=== PATIENT | female | born 2000 | race Caucasian/White ===

== ENCOUNTER → 2023-07-01 | Emergency (ER) | payer BC ==
--- OUTSIDE RECORDS SUMMARY | 2023-07-01 06:19 | XMS REPORT | Continuity of Care Document ---
Author Name Unknown Address [address] [facility] [place] [address] [facility] thconnect Address [address] [facility] [place] [address] Care Team Providers Care Hazardous Waste Material Technician Name Role Phone Pcp, Patient Does Not Have A Primary Care Physic ventura Carlitos Crouch Attending Clinician + CARLITOS IRAHETA Attending Clinician Unava illucien Doctor Unassigned, [place] Attending Clinician U anna Santos RN, Sean Attending Clinician Unavailab le Only, Yanick [facility] Test Attending Clinician Unavaildex das Unknown, Attending Attending Clinician Unavailab le UNKNOWN, ATTENDING Attending Clinician Unavailab MARYJO Pina Attending Clinician Unavailable Vikram RN, Elisa Strickland Attending Clinician Unavailab le Nurse, Yanick Urgent Attending Clinician Unavaildex Bryant MD, Jesus James Attending Clinician [phone] ORLANDO CARPIO Attending Clinician Unavailable Orlando Carpio MD Attending Clinician [phone] [facility] Attending Clinician Unavailable Orlando Carpio MD Admitting Clinician [phone] Payers Payer Name Policy Type Policy Number Effective Date Expirati on Date Source [facility] OUT [facility] STATE [id number] 2019 00:00:00 Problems Condition Name Condition Details Condition Category Status Onset Date Resolution Date Last Treatment Date Treating Clinician Comments Source 40 weeks gestation of 40 weeks gestation of Disease Active 12-21 00:00: 00 [facility] Allergies, Adverse Reactions, Alerts Allergy Name Allergy Type Status Severity Reaction(s) Onset Date Inactive Date Treating Clinician Comments Source MORPHINE DRUG INGREDI Active [facility] 12-17 00:00: 00 [facility] Morphine Propensi ty to adverse reaction s Active [facility] 12-17 00:00: 00 [facility] NO KNOWN ALLERGIE S Drug Class Active [facility] Social History Social Habit Start Date Stop Date Quantity Comments Source ASSERTION 2019-03-30 00:00:00 [facility] History SDOH Alcohol Std Drinks [facility] History SDOH Alcohol Binge [facility] intake 2023-06-13 00:00:00 2023-06-13 00:00:00 Current drinker of alcohol (finding) [facility] History of Social function 2023-06-13 00:00:00 2023-06-13 00:00:00 [facility] Exposure to SARS-CoV-2 (event) 2022-09-09 00:00:00 2022-09-19 13:41:00 Not sure [facility] Tobacco use and exposure 2022-09-19 00:00:00 2022-09-19 00:00:00 Smokeless tobacco non-user [facility] History SDOH Alcohol Frequency 2019-12-18 00:00:00 2019-12-18 00:00:00 1 [facility] Sex Assigned At 2000 00:00:00 2000 00:00:00 [facility] Smoking Status Start Date Stop Date Source Unknown if ever smoked [facility] Never smoked tobacco [facility] Medications Ordered Medication Name Filled Medication Name Start Date Stop Date Current Medication? Ordering Clinician Indication Dosage Frequency Signature (SIG) Comments Components Source norgestimat e-ethinyl estradioL 0.25-35 mg-mcg per tablet 2022-07 00:00: 00 Yes [id number] 1{tbl} Take 1 tablet by mouth in the morning. [facility] norgestimat e-ethinyl estradioL 0.25-35 mg-mcg per tablet 2022-07 2-05 00:00: 00 Yes [id number] 1{tbl} Take 1 tablet by mouth in the morning. [facility] medroxyPROG ESTERone (DEPO-PROVE RA) syringe 150 mg 09-19 21:15: 00 09-19 20:22 :00 No 150mg [facility] medroxyPROG ESTERone (DEPO-PROVE RA) syringe 150 mg 09-19 21:15: 00 09-19 20:22 :00 No 150mg 150 mg, Intramuscu lar, ONCE, 1 dose, On Mon09/19/22 at 1615, Routine [facility] medroxyPROG ESTERone (DEPO-PROVE RA) syringe 150 mg 09-19 21:15: 00 09-19 20:22 :00 No 150mg [facility] medroxyPROG ESTERone (DEPO-PROVE RA) syringe 150 mg 09-19 21:15: 00 09-19 20:22 :00 No 150mg 150 mg, Intramuscu lar, ONCE, 1 dose, On Mon09/19/22 at 1615, Routine [facility] medroxyPROG ESTERone (DEPO-PROVE RA) syringe 150 mg 09-19 21:15: 00 09-19 20:22 :00 No 150mg [facility] medroxyPROG ESTERone (DEPO-PROVE RA) syringe 150 mg 09-19 21:15: 00 09-19 20:22 :00 No 150mg 150 mg, Intramuscu lar, ONCE, 1 dose, On Mon09/19/22 at 1615, Routine [facility] medroxyPROG ESTERone (DEPO-PROVE RA) syringe 150 mg 09-19 21:15: 00 09-19 20:22 :00 No 150mg [facility] medroxyPROG ESTERone (DEPO-PROVE RA) syringe 150 mg 09-19 21:15: 00 09-19 20:22 :00 No 150mg 150 mg, Intramuscu lar, ONCE, 1 dose, On Mon09/19/22 at 1615, Routine [facility] cephALEXin (KEFLEX) 500 mg capsule 12-23 11:37: 27 12-23 00:00 :00 No 500mg Take 500 mg by mouth daily. [facility] ferrous sulfate (IRON) 325 mg (65 mg iron) tablet 12-23 11:37: 27 12-23 00:00 :00 No 325mg Take 325 mg by mouth 3 (three) times daily with meals. [facility] varicella virus vaccine live (VARIVAX (PF)) injection 0.5 mL 12-23 11:33: 03 12-23 21:42 :00 No .5mL 0.5 mL, Subcutaneo us, ONCE-PRIOR TO DISCHARGE, 1 dose, Starting Mon12/24/19 at 0633, Until Discontinu ed, Routine, Give vaccine prior to discharge [facility] vitamin w/FA tablet 12-23 00:00: 00 Yes [id number] 1{tbl} Take 1 tablet by mouth daily. [facility] docusate calcium 240 mg capsule 12-23 00:00: 00 Yes [id number] 240mg Take 1 capsule by mouth once daily as needed for Constipati on. [facility] ferrous sulfate 325 mg (65 mg iron) tablet 12-23 00:00: 00 Yes [id number] 325mg Take 1 tablet by mouth 2 (two) times daily. [facility] ibuprofen 600 mg tablet 12-23 00:00: 00 Yes [id number] 600mg Take 1 tablet by mouth every 6 (six) hours as needed (Pain). Take with food or milk. [facility] vitamin w/FA tablet 12-23 00:00: 00 Yes [id number] 1{tbl} Take 1 tablet by mouth daily. [facility] docusate calcium 240 mg capsule 12-23 00:00: 00 Yes [id number] 240mg Take 1 capsule by mouth once daily as needed for Constipati on. [facility] ferrous sulfate 325 mg (65 mg iron) tablet 12-23 00:00: 00 Yes [id number] 325mg Take 1 tablet by mouth 2 (two) times daily. [facility] ibuprofen 600 mg tablet 12-23 00:00: 00 Yes [id number] 600mg Take 1 tablet by mouth every 6 (six) hours as needed (Pain). Take with food or milk. [facility] vitamin w/FA tablet 12-23 00:00: 00 Yes [id number] 1{tbl} Take 1 tablet by mouth daily. [facility] docusate calcium 240 mg capsule 12-23 00:00: 00 Yes [id number] 240mg Take 1 capsule by mouth once daily as needed for Constipati on. [facility] ferrous sulfate 325 mg (65 mg iron) tablet 12-23 00:00: 00 Yes [id number] 325mg Take 1 tablet by mouth 2 (two) times daily. [facility] ibuprofen 600 mg tablet 12-23 00:00: 00 Yes [id number] 600mg Take 1 tablet by mouth every 6 (six) hours as needed (Pain). Take with food or milk. [facility] vitamin w/FA tablet 12-23 00:00: 00 Yes [id number] 1{tbl} Take 1 tablet by mouth daily. [facility] docusate calcium 240 mg capsule 12-23 00:00: 00 Yes [id number] 240mg Take 1 capsule by mouth once daily as needed for Constipati on. [facility] ferrous sulfate 325 mg (65 mg iron) tablet 12-23 00:00: 00 Yes [id number] 325mg Take 1 tablet by mouth 2 (two) times daily. [facility] ibuprofen 600 mg tablet 12-23 00:00: 00 Yes [id number] 600mg Take 1 tablet by mouth every 6 (six) hours as needed (Pain). Take with food or milk. [facility] vitamin w/FA tablet 0 16 00:00: 00 Yes [id number] 1{tbl} Take 1 tablet by mouth daily. [facility] docusate calcium 240 mg capsule 16 00:00: 00 Yes [id number] 240mg Take 1 capsule by mouth once daily as needed for Constipati on. [facility] ferrous sulfate 325 mg (65 mg iron) tablet 12-23 00:00: 00 Yes [id number] 325mg Take 1 tablet by mouth 2 (two) times daily. [facility] ibuprofen 600 mg tablet 12-23 00:00: 00 Yes [id number] 600mg Take 1 tablet by mouth every 6 (six) hours as needed (Pain). Take with food or milk. [facility] vitamin w/FA tablet 12-23 00:00: 00 Yes [id number] 1{tbl} Take 1 tablet by mouth daily. [facility] docusate calcium 240 mg capsule 12-23 00:00: 00 Yes [id number] 240mg Take 1 capsule by mouth once daily as needed for Constipati on. [facility] ferrous sulfate 325 mg (65 mg iron) tablet 12-23 00:00: 00 Yes [id number] 325mg Take 1 tablet by mouth 2 (two) times daily. [facility] ibuprofen 600 mg tablet 12-23 00:00: 00 Yes [id number] 600mg Take 1 tablet by mouth every 6 (six) hours as needed (Pain). Take with food or milk. [facility] vitamin w/FA tablet 12-23 00:00: 00 Yes [id number] 1{tbl} Take 1 tablet by mouth daily. [facility] docusate calcium 240 mg capsule 0 16 00:00: 00 Yes [id number] 240mg Take 1 capsule by mouth once daily as needed for Constipati on. [facility] ferrous sulfate 325 mg (65 mg iron) tablet 12-23 00:00: 00 Yes [id number] 325mg Take 1 tablet by mouth 2 (two) times daily. [facility] ibuprofen 600 mg tablet 12-23 00:00: 00 Yes [id number] 600mg Take 1 tablet by mouth every 6 (six) hours as needed (Pain). Take with food or milk. [facility] vitamin w/FA tablet 12-23 00:00: 00 Yes [id number] 1{tbl} Take 1 tablet by mouth daily. [facility] docusate calcium 240 mg capsule 12-23 00:00: 00 Yes [id number] 240mg Take 1 capsule by mouth once daily as needed for Constipati on. [facility] ferrous sulfate 325 mg (65 mg iron) tablet 12-23 00:00: 00 Yes [id number] 325mg Take 1 tablet by mouth 2 (two) times daily. [facility] ibuprofen 600 mg tablet 12-23 00:00: 00 Yes [id number] 600mg Take 1 tablet by mouth every 6 (six) hours as needed (Pain). Take with food or milk. [facility] vitamin w/FA tablet 12-23 00:00: 00 Yes [id number] 1{tbl} Take 1 tablet by mouth daily. [facility] docusate calcium 240 mg capsule 12-23 00:00: 00 Yes [id number] 240mg Take 1 capsule by mouth once daily as needed for Constipati on. [facility] ferrous sulfate 325 mg (65 mg iron) tablet 12-23 00:00: 00 Yes [id number] 325mg Take 1 tablet by mouth 2 (two) times daily. [facility] ibuprofen 600 mg tablet 12-23 00:00: 00 Yes [id number] 600mg Take 1 tablet by mouth every 6 (six) hours as needed (Pain). Take with food or milk. [facility] vitamin w/FA tablet 12-23 00:00: 00 Yes [id number] 1{tbl} Take 1 tablet by mouth daily. [facility] docusate calcium 240 mg capsule 12-23 00:00: 00 Yes [id number] 240mg Take 1 capsule by mouth once daily as needed for Constipati on. [facility] ferrous sulfate 325 mg (65 mg iron) tablet 12-23 00:00: 00 Yes [id number] 325mg Take 1 tablet by mouth 2 (two) times daily. [facility] ibuprofen 600 mg tablet 12-23 00:00: 00 Yes [id number] 600mg Take 1 tablet by mouth every 6 (six) hours as needed (Pain). Take with food or milk. [facility] vitamin w/FA tablet 12-23 00:00: 00 Yes [id number] 1{tbl} Take 1 tablet by mouth daily. [facility] docusate calcium 240 mg capsule 12-23 00:00: 00 Yes [id number] 240mg Take 1 capsule by mouth once daily as needed for Constipati on. [facility] ferrous sulfate 325 mg (65 mg iron) tablet 12-23 00:00: 00 Yes [id number] 325mg Take 1 tablet by mouth 2 (two) times daily. [facility] ibuprofen 600 mg tablet 12-23 00:00: 00 Yes [id number] 600mg Take 1 tablet by mouth every 6 (six) hours as needed (Pain). Take with food or milk. [facility] vitamin w/FA tablet 12-23 00:00: 00 Yes [id number] 1{tbl} Take 1 tablet by mouth daily. [facility] docusate calcium 240 mg capsule 12-23 00:00: 00 Yes [id number] 240mg Take 1 capsule by mouth once daily as needed for Constipati on. [facility] ferrous sulfate 325 mg (65 mg iron) tablet 12-23 00:00: 00 Yes [id number] 325mg Take 1 tablet by mouth 2 (two) times daily. [facility] ibuprofen 600 mg tablet 12-23 00:00: 00 Yes [id number] 600mg Take 1 tablet by mouth every 6 (six) hours as needed (Pain). Take with food or milk. [facility] acetaminoph en (TYLENOL) 325 mg tablet 12-23 00:00: 12-24 04:59 :00 No [id number] 650mg Take 2 tablets by mouth every 6 (six) hours as needed for Alternate with ibuprofen for pain scale 1-3 or Alternate with ibuprofen for pain scale 4-6. [facility] acetaminoph en (TYLENOL) 325 mg tablet 12-23 00:00: 00 12-24 04:59 :00 No [id number] 650mg Take 2 tablets by mouth every 6 (six) hours as needed for Alternate with ibuprofen for pain scale 1-3 or Alternate with ibuprofen for pain scale 4-6. [facility] acetaminoph en (TYLENOL) 325 mg tablet 12-23 00:00: 00 12-24 04:59 :00 No [id number] 650mg Take 2 tablets by mouth every 6 (six) hours as needed for Alternate with ibuprofen for pain scale 1-3 or Alternate with ibuprofen for pain scale 4-6. [facility] acetaminoph en (TYLENOL) 325 mg tablet 12-23 00:00: 00 12-24 04:59 :00 No [id number] 650mg Take 2 tablets by mouth every 6 (six) hours as needed for Alternate with ibuprofen for pain scale 1-3 or Alternate with ibuprofen for pain scale 4-6. [facility] rho(D) immune globulin (RHOGAM) syringe 300 mcg 12-22 15:30: 42 Yes 300ug 300 mcg, Intramuscu lar, ONCE, For 1 dose, Conditiona l, Routine [facility] simethicone (GAS RELIEF (SIMETHICON E)) chewable tablet 160 mg 12-22 15:30: 38 Yes 160mg 160 mg, Oral, PC+HSPRN, Starting 12/22/20 at 1030, Until Discontinu ed, Routine, Gas [facility] ibuprofen (IBU) tablet 600 mg 12-22 15:30: 37 Yes 600mg 600 mg, Oral, Q6HPRN, Starting Mon12/23/19 at 1030, Until Discontinu ed, Routine, Pain (scale 4-6) [facility] acetaminoph en (TYLENOL) tablet 650 mg 12-22 15:30: 37 Yes 650mg 650 mg, Oral, Q6HPRN, Starting Mon12/23/19 at 1030, Until Discontinu ed, Routine, Pain (scale 1-3) [facility] diphenhydrA MINE (BENADRYL) tablet 25 mg 12-22 15:30: 37 Yes 25mg 25 mg, Oral, Q6HPRN, Starting Mon12/23/19 at 1030, Until Discontinu ed, Routine, Sleep, Itching [facility] diphenhydrA MINE-0.9 % sod.chlr (BENADRYL) 25 mg/50 mL piggyback 25 mg 12-22 15:30: 37 Yes 25mg 25 mg, IV Piggyback, Administer over 30 Minutes, Q6HPRN, Starting Mon12/23/19 at 1030, Until Discontinu ed, Routine, Itching [facility] ondansetron (ZOFRAN (PF)) injection 4 mg 12-22 15:30: 37 Yes 4mg 4 mg, Slow IV Push, Q8HPRN, Starting Mon12/23/19 at 1030, Until Discontinu ed, Routine, Nausea and Vomiting (N/V) [facility] docusate calcium (SURFAK) capsule 240 mg 12-22 15:30: 37 Yes 240mg 240 mg, Oral, QDAILYPRN, Starting Mon12/23/19 at 1030, Until Discontinu ed, Routine, Constipati on [facility] magnesium hydroxide (MILK OF MAGNESIA) 400 mg/5 mL suspension 30 mL 0 12-22 15:30: 37 Yes 30mL 30 mL, Oral, QDAILYPRN, Starting Mon12/23/19 at 1030, Until Discontinu ed, Routine, Constipati on [facility] benzocaine- menthol (DERMOPLAST ) 20-0.5 % topical spray 12-22 15:30: 37 Yes Topical, PRN, Starting 12/23/19 at 1030, Until Discontinu ed, Routine, Perineum discomfort [facility] FENTanyl PF (SUBLIMAZE (PF)) injection 50 mcg 12-22 14:04: 00 12-22 13:45 :00 No 50ug 50 mcg, Slow IV Push, ONCE, 1 dose, 12/23/19 at 0915, Routine [facility] LR 1000 mL + oxytocin 20 units IV Solution 12-22 13:30: 00 12-22 14:57 :00 No at 125 mL/hr, IV Infusion, ONCE, 1 dose, Mon12/23/19 at 0830, Routine [facility] D5W-LR IV infusion 1,000 mL 12-22 03:00: 00 12-22 15:30 :43 No 1000mL at 125 mL/hr, IV Infusion, CONTINUOUS , Starting 12/22/19 at 2200, Until Mon12/23/19 at 1030, Routine [facility] LR 1000 mL + oxytocin 20 units IV Solution 12-22 02:47: 59 12-22 15:30 :43 No 2mU/min at 6-120 mL/hr, IV Infusion, TITRATE, Starting Mon12/22/19 at 2147, Until Mon12/23/19 at 1030, MEGHA [facility] sodium citrate-cit rossi acid (BICITRA) 500-334 mg/5 mL solution 30 mL 12-22 02:46: 47 12-22 07:13 :00 No 30mL 30 mL, Oral, PRE-PROCED URE ONCE, 1 dose, Starting 12/22/19 at 2146, Until Discontinu ed, Routine, Surgery/Pr ocedure [facility] lactated ringers IV infusion 500 mL 12-22 02:46: 47 12-22 15:30 :43 No 500mL at 999 mL/hr, 500 mL, IV Infusion, PRN - SEE INSTRUCTIO NS, Starting 12/22/19 at 2146, Until 12/23/19 at 1030, Routine [facility] cephALEXin (KEFLEX) 500 mg capsule 12-17 18:19: 16 Yes 500mg Take 500 mg by mouth daily. [facility] ferrous sulfate (IRON) 325 mg (65 mg iron) tablet 12-17 18:19: 16 Yes 325mg Take 325 mg by mouth 3 (three) times daily with meals. [facility] cephALEXin (KEFLEX) 500 mg capsule 12-17 18:19: 16 Yes 500mg Take 500 mg by mouth daily. [facility] ferrous sulfate (IRON) 325 mg (65 mg iron) tablet 12-17 18:19: 16 Yes 325mg Take 325 mg by mouth 3 (three) times daily with meals. [facility] Immunizations Ordered Immunization Name Filled Immunization Name Date Status Comments Source SARS-COV-2 COVID-19 PFIZER VACCINE 2020-10-22 00:00:00 Completed [facility] SARS-COV-2 COVID-19 PFIZER VACCINE 2020-10-22 00:00:00 Completed [facility] SARS-COV-2 COVID-19 PFIZER VACCINE 2020-10-22 00:00:00 Completed [facility] SARS-COV-2 COVID-19 PFIZER VACCINE 2020-10-22 00:00:00 Completed [facility] SARS-COV-2 COVID-19 PFIZER VACCINE 2020-10-22 00:00:00 Completed [facility] Pfizer COVID-19 Vaccine Pfizer COVID-19 Vaccine 2020-10-22 00:00:00 Completed SARS-COV-2 COVID-19 PFIZER VACCINE 2020-10-01 00:00:00 Completed [facility] SARS-COV-2 COVID-19 PFIZER VACCINE 2020-10-01 00:00:00 Completed [facility] SARS-COV-2 COVID-19 PFIZER VACCINE 2020-10-01 00:00:00 Completed [facility] SARS-COV-2 COVID-19 PFIZER VACCINE 2020-10-01 00:00:00 Completed [facility] SARS-COV-2 COVID-19 PFIZER VACCINE 2020-10-01 00:00:00 Completed [facility] Pfizer COVID-19 Vaccine Pfizer COVID-19 Vaccine 2020-10-01 00:00:00 Completed Varicella (varivax)(chicken pox) 2019-12-24 00:00:00 Completed [facility] Varicella (varivax)(chicken pox) 2019-12-24 00:00:00 Completed [facility] Varicella (varivax)(chicken pox) 2019-12-24 00:00:00 Completed [facility] Varicella (varivax)(chicken pox) 2019-12-24 00:00:00 Completed [facility] Varicella (varivax)(chicken pox) 2019-12-24 00:00:00 Completed [facility] Varicella (varivax)(chicken pox) 2019-12-24 00:00:00 Completed [facility] Varicella (varivax)(chicken pox) 2019-12-24 00:00:00 Completed [facility] Varicella (varivax)(chicken pox) 2019-12-24 00:00:00 Completed [facility] Varicella (varivax)(chicken pox) 2019-12-24 00:00:00 Completed [facility] Varicella (varivax)(chicken pox) Unknown Completed [facility] Varicella (varivax)(chicken pox) Unknown Completed [facility] SARS-COV-2 COVID-19 PFIZER VACCINE Unknown Completed [facility] SARS-COV-2 COVID-19 PFIZER VACCINE Unknown Completed [facility] Varicella (varivax)(chicken pox) Unknown Completed [facility] SARS-COV-2 COVID-19 PFIZER VACCINE Unknown Completed [facility] SARS-COV-2 COVID-19 PFIZER VACCINE Unknown Completed [facility] Vital Signs Vital Name Observation Time Observation Value Comments S ource Systolic blood pressure 2023-06-13 21:49:00 130 mm[Hg] [facility] Diastolic blood pressure 2023-06-13 21:49:00 86 mm[Hg] [facility] Heart rate 2023-06-13 21:49:00 86 [facility] 2023-06-13 21:49:00 82.736 kg [facility] BMI 2023-06-13 21:49:00 29.44 kg/m2 [facility] Systolic blood pressure 2022-09-19 18:54:00 121 mm[Hg] [facility] Diastolic blood pressure 2022-09-19 18:54:00 85 mm[Hg] [facility] Heart rate 2022-09-19 18:54:00 94 /min [facility] Body height 2022-09-19 18:54:00 167.6 cm [facility] Body weight 2022-09-19 18:54:00 80.604 kg [facility] BMI 2022-09-19 18:54:00 28.68 kg/m2 [facility] Systolic blood pressure 2019-12-24 21:03:00 114 mm[Hg] [facility] Diastolic blood pressure 2019-12-24 21:03:00 74 mm[Hg] [facility] Heart rate 2019-12-24 21:03:00 83 /min [facility] Body temperature 2019-12-24 21:03:00 36.67 [facility] Respiratory rate 2019-12-24 21:03:00 18 /min [facility] Oxygen saturation in Arterial blood by Pulse oximetry 2019-12-24 21:03:00 98 /min [facility] Body height 2019-12-23 01:10:00 167.6 cm [facility] Body weight 2019-12-23 01:10:00 83.462 kg [facility] BMI 2019-12-23 01:10:00 29.71 kg/m2 [facility] Systolic blood pressure 2019-12-18 18:16:00 132 mm[Hg] [facility] Diastolic blood pressure 2019-12-18 18:16:00 80 mm[Hg] [facility] Heart rate 2019-12-18 18:16:00 102 /min [facility] Body height 2019-12-18 18:16:00 167.6 cm [facility] Body weight 2019-12-18 18:16:00 82.419 kg [facility] BMI 2019-12-18 18:16:00 29.33 kg/m2 [facility] Procedures Procedure Date / Time Performed Performing Clinician Source POCT TEST 2023-06-13 22:08:00 Carlitos Iraheta [facility] POCT TEST 2022-09-19 21:41:00 Carlitos Iraheta [facility] ASSIGNMENT OF BENEFITS 2022-09-19 18:43:42 Docto r Unassigned, [place] [facility] CBC WITH DIFFERENTIAL 2019-12-24 09:11:00 Froilan Blackwell [facility] EXTERNAL PROVIDER RECORDS 2019-12-24 05:01:00 Doctor Unassigned, [place] [facility] VENOUS CORD GAS 2019-12-23 13:21:00 Mindy [facility] GALV ONLY - SYPHILIS IGG/IGM 2019-12-23 03:18:00 Mindy [facility] CBC WITH DIFFERENTIAL 2019-12-23 03:17:00 Penny Guillen [facility] HEPATITIS B SURFACE ANTIGEN 2019-12-23 03:17:00 Mindy [facility] HB ABO GROUPING 2019-12-23 03:16[facility]E GLOBULIN 2019-12-23 03:16:00 Shon Blackwell [facility] COVID-19 (ID NOW RAPID TESTING) 2019-12-23 01:11:00 Chance Hunter [facility] URINALYSIS 2019-12-18 18:48:00 Orlando Carpio [facility] Encounters Start Date/Time End Date/Time Encounter Type Admission Type Attending Clinicians Care Facility Care Department Encounter ID Source 2021-05-07 00:55:46 Outpatient [facility] [id number] [facility] 2023-06-13 15:40:00 2023-06-13 16:00:00 Office Visit Carlitos Iraheta [facility] [id number] [facility] 2023-06-13 15:40:00 2023-06-13 15:40:00 Outpatient R CARLITOS IRAHETA [facility] [id number] [facility] 2022-12-06 14:00:00 2022-12-06 14:00:00 Outpatient R [facility] [id number] [facility] 2022-09-19 14:00:00 2022-09-19 16:04:49 [facility] [id number] [facility] 2022-09-19 14:00:00 2022-09-19 16:04:49 Office Visit Carlitos Iraheta [facility] 1.2.840.114 350.1.13.10 4.2.7.2.686 [id number] [facility] 2022-09-19 00:00:00 2022-09-19 00:00:00 Orders Only Doctor Unassigned, [place] [facility] 1.2.840.114 350.1.13.10 4.2.7.2.686 [id number] [facility] 2021-04-09 00:00:00 2021-04-09 00:00:00 Telephone Sean Santos [facility] 1.2840.114 350.1.13.10 4.2.7.2.686 [id number] [facility] 2021-04-08 20:05:38 2021-04-08 20:20:38 Laboratory Only Only, Yanick Uc Test Unknown, Attending [facility] 1.2.840.114 350.1.13.10 4.2.7.2.686 [id number] [facility] 2021-04-08 20:00:00 2021-04-08 20:00:00 Outpatient R UNKNOWN, ATTENDING [facility] [id number] [facility] 2020-10-22 13:50:00 2020-10-22 13:50:00 Outpatient MARYJO RIVERA [facility] [id number] [facility] 2020-10-22 00:00:00 2020-10-22 00:00:00 Outpatient [facility] [id number] [facility] 2020-10-01 13:20:00 2020-10-01 13:20:00 Outpatient [facility] [id number] [facility] 2020-10-01 00:00:00 2020-10-01 00:00:00 Outpatient [facility] [id number] [facility] 2020-05-07 00:00:00 2020-05-07 00:00:00 Letter (Out) Elisa Sue [facility] 1.840.114 350.1.13.10 4.2.7.2.686 [id number] [facility] 2020-05-07 00:00:00 2020-05-07 00:00:00 Patient Secure Msg Doctor Unassigned, [place] [facility] 1.2840.114 350.1.13.10 4.2.7.2.686 [id number] [facility] 2020-05-06 16:55:16 2020-05-06 18:02:59 Laboratory Only Nurse, Yanick Urgent Unknown, Attending Jesus Bryant [facility] 1.840.114 350.1.13.10 4.2.7.2.686 [id number] [facility] 2020-05-06 16:45:00 2020-05-06 16:45:00 Outpatient R UNKNOWN, ATTENDING [facility] [id number] [facility] 2020-01-16 09:30:00 2020-01-16 09:30:00 Outpatient R ORLANDO CARPIO [facility] [id number] [facility] 2019-12-26 15:45:00 2019-12-26 15:45:00 Outpatient R ORLANDO CARPIO [facility] [id number] [facility] 2019-12-22 19:43:00 2019-12-24 17:25:00 Hospital Encounter Orlando Carpio [facility] 1.2.840.114 350.1.13.10 4.2.7.2.686 [id number] [facility] 2019-12-18 13:54:18 2019-12-18 14:09:18 Rn School Visit [facility] 1.2.840.114 350.1.13.10 4.2.7.2.686 [id number] [facility] 2019-12-18 13:03:06 2019-12-18 13:57:47 Initial Visit [facility] 1.2.840.114 350.1.13.10 4.2.7.2.686 [id number] [facility] 2019-12-18 13:00:00 2019-12-18 13:00:00 Outpatient R ORLANDO CARPIO [facility] [id number] [facility] Results Test Description Test Time Test Comments Results Result Co mments Source [id number] 22:08:00* Test Item Value Reference Range Interpretation Comme nts POCT PREG (test code = 1605) Negative On board controls acceptable with C Line (test code = 3574) Yes POCT PREG LOT # (test code = 3575) POCT PREG TEST DATE ( test code = 3576) [id number] 21:41:00* Test Item Value Reference Range Interpretation Comme nts POCT PREG (test code = 1605) Negative On board controls acceptable with C Line (test code = 3574) Yes POCT PREG LOT # (test code = 3575) POCT PREG TEST DATE ( test code = 3576) [facility] [id number] 21:41:00* Test Item Value Reference Range Interpretation Comme nts POCT PREG (test code = 1605) Negative On board controls acceptable with C Line (test code = 3574) Yes POCT PREG LOT # (test code = 3575) POCT PREG TEST DATE ( test code = 3576) [facility] WITH [id number] 09:51:00* Test Item Value Reference Range Interpretation Comme nts WBC (test code = 6690-2) See_Comment H [Automated messa ge] The system which generated this result transmitted reference range: 4.30 - 11.10 10*3/?L. The reference range was not used to interpret this result as normal/abnormal. RBC (test code = 789-8) See_Comment L [Automated messa ge] The system which generated this result transmitted reference range: 3.93 - 5.25 10*6/?L. The reference range was not used to interpret this result as normal/abnormal. HGB (test code = 718-7) 7.9 g/dL 11.6-15 L HCT (test code = 4544-3) 23.8 % 35.7-45.2 L MCV (test code = 787-2) 96.0 fL 80.6-95.5 H MCH (test code = 785-6) 31.9 pg 25.9-32.8 MCHC (test code = 786-4) 33.2 g/dL 31.6-35.1 RDW-SD (test code = 83446-7) 46.5 fL 39-49.9 RDW-CV (test code = 788-0) 13.2 % 12-15.5 PLT (test code = 777-3) See_Comment L [Automated messa ge] The system which generated this result transmitted reference range: 166 - 358 10*3/?L. The reference range was not used to interpret this result as normal/abnormal. MPV (test code = 45955-4) 10.5 fL 9.5-12.9 NRBC/100 WBC (test code = 7350202658) See_Comment [Automated me ssage] The system which generated this result transmitted reference range: 0.0 - 10.0 /100 WBCs. The reference range was not used to interpret this result as normal/abnormal. NRBC x10^3 (test code = 1409505614) <0.01 See_Comment [Automated messa ge] The system which generated this result transmitted reference range: 10*3/?L. The reference range was not used to interpret this result as normal/abnormal. GRAN MAT (NEUT) % (test code = 770-8) 69.4 % IMM GRAN % (test code = 3920959733) 0.70 % LYMPH % (test code = 736-9) 21.5 % MONO % (test code = 5905-5) 7.5 % EOS % (test code = 713-8) 0.7 % BASO % (test code = 706-2) 0.2 % GRAN MAT x10^3(ANC) (test code = 2427250379) 9.96 10*3/uL 1.88-7.09 H IMM GRAN x10^3 (test code = 0220877347) 0.10 10*3/uL 0-0.06 H LYMPH x10^3 (test code = 731-0) 3.08 10*3/uL 1.32-3.29 MONO x10^3 (test code = 742-7) 1.07 10*3/uL 0.33-0.92 H EOS x10^3 (test code = 711-2) 0.10 10*3/uL 0.03-0.39 BASO x10^3 (test code = 704-7) 0.03 10*3/uL 0.01-0.07 Lab Interpretation (test code = 83179-9) Abnormal [facility] IMMUNE [id number] 15:32:08* Test Item Value Reference Range Interpretation Comme nts RHIG CANDIDATE? (test code = 5055) No- see comment Patient is not a candidate for RhIg- Patient is Rh Positive.Performed at [facility] Laboratory Services - [facility] [address] [place] [address]Ebag Free: [phone] No. [id number] [facility]GAL[facility] ONLY - SYPHILIS [id number] 15:15:00* Test Item Value Reference Range Interpretation Comme nts Syphilis IgG/IgM (test code = 61895-1) Non-reactive Non-reactive LATOYA (test code = LATOYA) Non-reactive - No serologic evidence of T. pallidum infection. Cannot exclude incubating or early syphilis. Submit a second specimen in 2-4 weeks if syphilis is clinically suspected. Equivocal - Further testing to follow. Reactive - Further testing to follow. Lab Interpretation (test code = 44736-2) Normal [facility] CORD [id number] 13:43:00* Test Item Value Reference Range Interpretation Comme nts VENOUS BASE EXCESS, CORD (test code = 2154534502) mEq/L VENOUS PH, CORD (test code = 7093031621) 7.25-7.45 VENOUS PC02, CORD (test code = 8824895507) See_Comment [Automated messa ge] The system which generated this result transmitted reference range: 27 - 49 mmHg. The reference range was not used to interpret this result as normal/abnormal. VENOUS PO2, CORD (test code = 0077519135) See_Comment [Automated me ssage] The system which generated this result transmitted reference range: 17 - 41 mmHg. The reference range was not used to interpret this result as normal/abnormal. VENOUS BICARBONATE, CORD (test code = 0148305870) See_Comment [Automated messa ge] The system which generated this result transmitted reference range: 12 - 29 mEq/L. The reference range was not used to interpret this result as normal/abnormal. [facility] CORD [id number] 13:43:00* Test Item Value Reference Range Interpretation Comme nts BASE EXCESS, CORD (test code = 9775962979) mEq/L AC PH, CORD (BEAKER) (test code = 7430866490) 7.18-7.38 PC02, CORD (test code = 6873064941) See_Comment [Automated messa ge] The system which generated this result transmitted reference range: 32 - 66 mmHg. The reference range was not used to interpret this result as normal/abnormal. PO2, CORD (test code = 8750523802) See_Comment [Automated messa ge] The system which generated this result transmitted reference range: 10 - 30 mmHg. The reference range was not used to interpret this result as normal/abnormal. BICARBONATE, CORD (test code = 8338632951) See_Comment [Automated messa ge] The system which generated this result transmitted reference range: 17 - 27 mEq/L. The reference range was not used to interpret this result as normal/abnormal. [facility]atitis B Surface [id number] 04:40:00 * Test Item Value Reference Range Interpretation Comme nts HBsAg Semi-Quantitative (mabel t code = 5195-3) Negative Negative [facility]Type and Screen - ONCE [id number] 04:26:53 * Test Item Value Reference Range Interpretation Comme nts ABO & RH (test code = 20) O POSITIVE Performed at [facility] Laboratory [facility] Blood [address] Free: [phone] No. [id number] IAT (test code = 1185) Negative Performed at [facility] Laboratory [facility] Blood [address] Free: [phone] No. [id number] [facility] CenterCBC WITH [id number] 03:47:00* Test Item Value Reference Range Interpretation Comme nts WBC (test code = 6690-2) See_Comment [Automated messa ge] The system which generated this result transmitted reference range: 4.30 - 11.10 10*3/?L. The reference range was not used to interpret this result as normal/abnormal. RBC (test code = 789-8) See_Comment L [Automated messa ge] The system which generated this result transmitted reference range: 3.93 - 5.25 10*6/?L. The reference range was not used to interpret this result as normal/abnormal. HGB (test code = 718-7) 11.2 g/dL 11.6-15 L HCT (test code = 4544-3) 33.5 % 35.7-45.2 L MCV (test code = 787-2) 95.4 fL 80.6-95.5 MCH (test code = 785-6) 31.9 pg 25.9-32.8 MCHC (test code = 786-4) 33.4 g/dL 31.6-35.1 RDW-SD (test code = 40042-8) 46.2 fL 39-49.9 RDW-CV (test code = 788-0) 13.2 % 12-15.5 PLT (test code = 777-3) See_Comment [Automated messa ge] The system which generated this result transmitted reference range: 166 - 358 10*3/?L. The reference range was not used to interpret this result as normal/abnormal. MPV (test code = 49937-4) 10.7 fL 9.5-12.9 NRBC/100 WBC (test code = 5558117889) See_Comment [Automated MOgene ssage] The system which generated this result transmitted reference range: 0.0 - 10.0 /100 WBCs. The reference range was not used to interpret this result as normal/abnormal. NRBC x10^3 (test code = 5236891309) <0.01 See_Comment [Automated messa ge] The system which generated this result transmitted reference range: 10*3/?L. The reference range was not used to interpret this result as normal/abnormal. GRAN MAT (NEUT) % (test code = 770-8) 72.2 % IMM GRAN % (test code = 5394073288) 0.50 % LYMPH % (test code = 736-9) 18.9 % MONO % (test code = 5905-5) 7.3 % EOS % (test code = 713-8) 0.9 % BASO % (test code = 706-2) 0.2 % GRAN MAT x10^3(ANC) (test code = 0682906685) 7.67 10*3/uL 1.88-7.09 H IMM GRAN x10^3 (test code = 7880262710) 0.05 10*3/uL 0-0.06 LYMPH x10^3 (test code = 731-0) 2.00 10*3/uL 1.32-3.29 MONO x10^3 (test code = 742-7) 0.77 10*3/uL 0.33-0.92 EOS x10^3 (test code = 711-2) 0.10 10*3/uL 0.03-0.39 BASO x10^3 (test code = 704-7) <0.03 0.01-0.07 Lab Interpretation (test code = 32023-5) Abnormal [facility] (ID NOW RAPID TESTING)2019-12-23 01:48:00* Test Item Value Reference Range Interpretation Comme nts SARS-CoV-2 Rapid ID NOW (test code = 91542-2) Not Detected Not Detected LATOYA (test code = LATOYA) ID NOW COVID-19 As say is an isothermal nucleic acid amplification test intended for the qualitative detection of nucleic acid from SARS-CoV-2 viral RNA in nasopharyngeal (SOLID WASTE ENGINEER) specimens. It is used under Emergency Use Authorization (EUA) by FDA. The limit of detection (LOD) of the assay is 125 Genome Equivalents/mL. A positive result is indicative of the presence of SARS-CoV-2 RNA. ?Clinical correlation with patient history and other diagnostic information is necessary to determine patient infection status. A negative (Not Detected) result does not preclude SARS-CoV-2 infection. In patients with clinical symptoms and other tests that are consistent with SARS-CoV-2 infection, negative results should be treated as presumptive negative and a new specimen should be tested with alternative PCR molecular test. Invalid: Please collect a new specimen for repeat patient testing if clinically indicated. Lab Interpretation (test code = 96443-7) Normal [facility]YSIS2020-06-10 19:49:00* Test Item Value Reference Range Interpretation Comme nts APPEARANCE (test code = 4250634883) Cloudy Clear A COLOR (test code = 9944961725) Yellow Yellow PH (test code = 3163613446) 4.8-8.0 SP GRAVITY (test code = 0110104560) 1.003-1.030 GLU U QUAL (test code = 8656494826) Normal Normal BLOOD (test code = 5750457243) 2+ Negative A KETONES (test code = 7376144490) Negative Negative PROTEIN (test code = 2887-8) Negative Negative UROBILIN (test code = 5919188486) Normal Normal BILIRUBIN (test code = 6216284028) Negative Negative NITRITE (test code = 4576661975) Negative Negative LEUK FARA (test code = 2042695037) 500/uL Negative A RBC/HPF (test code = 0188745212) See_Comment H [Automated Tetrageneticsa ge] The system which generated this result transmitted reference range: 0 - 3 HPF. The reference range was not used to interpret this result as normal/abnormal. WBC/HPF (test code = 5065462494) See_Comment [Automated messa ge] The system which generated this result transmitted reference range: 0 - 5 HPF. The reference range was not used to interpret this result as normal/abnormal. BACTERIA (test code = 6793269943) Negative Negative MUCOUS (test code = 8827514731) Slight Negative LPF A AMORPHOUS (test code = 0469770339) Moderate Rare HPF A SQ EPITH (test code = 8699106876) See_Comment H [Automated messa ge] The system which generated this result transmitted reference range: <=2 HPF. The reference range was not used to interpret this result as normal/abnormal. Lab Interpretation (test code = 69120-2) [facility]
--- NOTE | 2023-07-01 06:33 | ER ---
Nurse's Notes [facility] Name: Inna Spangler Age: 23 yrs Sex: Female : 2000 Arrival Date: 07/01/2023 Time: 06:14 Bed DX3 Private MD: Diagnosis: Dental abscess, tooth ache Presentation: 07/01 06:27 Chief complaint: Patient states: I am having left sided tooth aches that started today. jb4 I was told to come see the ER because the dentist is closed for the holidays. Coronavirus screen: At this time, the client does not indicate any symptoms associated with coronavirus-19. Ebola Screen: No symptoms or risks identified at this time. Initial Sepsis Screen: Does the patient meet any 2 criteria? No. Patient's initial sepsis screen is negative. Does the patient have a suspected source of infection? No. Patient's initial sepsis screen is negative. Risk Assessment: Do you want to hurt yourself or someone else? Patient reports no desire to harm self or others. Onset of symptoms was July 01, 2023. Transition of care: patient was not received from another setting of care. 06:27 Method Of Arrival: Ambulatory jb4 06:27 Acuity: MARÍA 5 jb4 Historical: - Allergies: 06:28 No Known Allergies; jb4 - PMHx: 06:28 None; jb4 - PSHx: 06:28 None; jb4 - Immunization history:: Adult Immunizations up to date. - Social history:: Smoking status: Patient denies any tobacco usage or history of. Screenin:39 [facility] ED Fall Risk Assessment (Adult) History of falling in the last 3 months, jb4 including since admission No falls in past 3 months (0 pts) Confusion or Disorientation No (0 pts) Score/Fall Risk Level 0 - 2 = Low Risk Oriented to surroundings, Maintained a safe environment. Abuse screen: Denies threats or abuse. Nutritional screening: No deficits noted. Tuberculosis screening: No symptoms or risk factors identified. Assessment: 06:29 General: Appears in no apparent distress. comfortable, Behavior is calm, cooperative, jb4 appropriate for age. Pain: Complains of pain in mouth. Neuro: Level of Consciousness is awake, alert, obeys commands, Oriented to person, place, time, situation. EENT: Throat is clear. Derm: Skin is intact, Skin is pink, warm \T\ dry. Musculoskeletal: Circulation, motion, and sensation intact. Range of motion: intact in all extremities. Vital Signs: 06:27 BP 132 / 72; Pulse 78; Resp 16; Temp 97.9(TE); Pulse Ox 100% on R/A; Weight 81.65 kg; jb4 Height 5 ft. 6 in. ; 06:27 Body Mass Index 29.05 (81.65 kg, 167.64 cm) jb4 ED Course: 06:19 Patient arrived in ED. gm2 06:28 Triage completed. jb4 06:28 Arm band placed on right wrist. jb4 06:29 Nellie Carpio MD is Attending Physician. sp3 06:39 Patient has correct armband on for positive identification. Bed in low position. Call jb4 light in reach. Side rails up X 1. 06:39 No provider procedures requiring assistance completed. Patient did not have IV access jb4 during this emergency room visit. Administered Medications: No medications were administered Outcome: 06:32 Discharge ordered by . sp3 06:39 Discharged to home ambulatory, jb4 06:39 Condition: stable 06:39 Discharge instructions given to patient, Instructed on discharge instructions, follow up and referral plans. medication usage, Demonstrated understanding of instructions, follow-up care, medications, Prescriptions given X 2, 06:39 Patient left the ED. jb4 Signatures: Tomy Denton, RN RN jb4 Nellie Carpio MD MD sp3 Graciela Gupta 2
--- NOTE | 2023-07-01 06:33 | EDPHYS ---
Physician Documentation [facility] Name: Inna Spangler Age: 23 yrs Sex: Female : 2000 Arrival Date: 07/01/2023 Time: 06:14 Bed DX3 Private MD: ED Physician Nellie Carpio HPI: 07/01 06:30 This 23 yrs old Female presents to ER via Ambulatory with complaints of Toothache. sp3 06:30 23-year-old female with no past medical history presents with left maxilla tooth ache sp3 for 2 days. Patient was unable to get an appointment before the holiday and now has 1 on July 12. The dentist office told her to come to the ED if she continues to have pain. She also complains of mild facial swelling without fever. She denies any other symptoms including headache, neck pain, mandible pain, chest pain, shortness of breath, any other systemic symptoms or any other signs or symptoms on ROS at this time.. Historical: - Allergies: 06:28 No Known Allergies; jb4 - PMHx: 06:28 None; jb4 - PSHx: 06:28 None; jb4 - Immunization history:: Adult Immunizations up to date. - Social history:: Smoking status: Patient denies any tobacco usage or history of. ROS: 06:31 Constitutional: Negative for fever, chills, and weight loss, Eyes: Negative for injury, sp3 pain, redness, and discharge, Neck: Negative for injury, pain, and swelling, Cardiovascular: Negative for chest pain, palpitations, and edema, Respiratory: Negative for shortness of breath, cough, wheezing, and pleuritic chest pain, Abdomen/GI: Negative for abdominal pain, nausea, vomiting, diarrhea, and constipation, Back: Negative for injury and pain, MS/Extremity: Negative for injury and deformity, Skin: Negative for injury, rash, and discoloration, Neuro: Negative for headache, weakness, numbness, tingling, and seizure, Psych: Negative for depression, anxiety, suicide ideation, homicidal ideation, and hallucinations, Allergy/Immunology: Negative for hives, rash, and allergies, Endocrine: Negative for neck swelling, polydipsia, polyuria, polyphagia, and marked weight changes, 06:31 All other systems are negative, Exam: 06:31 Constitutional: This is a well developed, well nourished patient who is awake, alert, sp3 and in no acute distress. Head/Face: Normocephalic, atraumatic. Eyes: Pupils equal round and reactive to light, extra-ocular motions intact. Lids and lashes normal. Conjunctiva and sclera are non-icteric and not injected. Cornea within normal limits. Periorbital areas with no swelling, redness, or edema. Neck: Trachea midline, no thyromegaly or masses palpated, and no cervical lymphadenopathy. Supple, full range of motion without nuchal rigidity, or vertebral point tenderness. No Meningismus. Chest/axilla: Normal chest wall appearance and motion. Nontender with no deformity. No lesions are appreciated. Cardiovascular: Regular rate and rhythm with a normal S1 and S2. No gallops, murmurs, or rubs. Normal PMI, no JVD. No pulse deficits. Respiratory: Lungs have equal breath sounds bilaterally, clear to auscultation and percussion. No rales, rhonchi or wheezes noted. No increased work of breathing, no retractions or nasal flaring. Abdomen/GI: Soft, non-tender, with normal bowel sounds. No distension or tympany. No guarding or rebound. No evidence of tenderness throughout. Back: No spinal tenderness. No costovertebral tenderness. Full range of motion. Skin: Warm, dry with normal turgor. Normal color with no rashes, no lesions, and no evidence of cellulitis. MS/ Extremity: Pulses equal, no cyanosis. Neurovascular intact. Full, normal range of motion. Neuro: Awake and alert, GCS 15, oriented to person, place, time, and situation. Cranial nerves II-XII grossly intact. Motor strength 5/5 in all extremities. Sensory grossly intact. Cerebellar exam normal. Normal gait. Psych: Awake, alert, with orientation to person, place and time. Behavior, mood, and affect are within normal limits. Vital Signs: 06:27 BP 132 / 72; Pulse 78; Resp 16; Temp 97.9(TE); Pulse Ox 100% on R/A; Weight 81.65 kg; jb4 Height 5 ft. 6 in. ; 06:27 Body Mass Index 29.05 (81.65 kg, 167.64 cm) 4 MDM: 06:30 Patient medically screened. sp3 06:31 Data reviewed: vital signs, nurses notes. ED course: 23-year-old female with sp3 uncomplicated tooth ache with probable abscess. Will place on Augmentin and diclofenac and discharge patient home with follow-up on July 12 with her dentist for definitive treatment. There are no signs of sepsis, shock, airway compromise, or any other critical process at this time.. Administered Medications: No medications were administered Disposition Summary: 07/01/23 06:32 Discharge Ordered Notes: Location: Home sp3 Condition: Stable sp3 Diagnosis - Dental abscess, tooth ache sp3 Followup: sp3 - With: Private Physician - When: Upon discharge from the Emergency Department - Reason: Continuance of care Discharge Instructions: - Discharge Summary Sheet sp3 - Dental Abscess sp3 Forms: - Medication Reconciliation Form sp3 - Thank You Letter sp3 - Antibiotic Education sp3 - Prescription Opioid Use sp3 - Patient Portal Instructions sp3 - Leadership Thank You Letter sp3 Prescriptions: - Augmentin 875-125 mg Oral Tablet - take 1 tablet ORAL route every 12 hours for 10 days; 20 tablet; Refills: 0, sp3 Product Selection Permitted - Diclofenac Sodium 75 mg Oral Tablet Sustained Release - take 1 tablet ORAL route 2 times per day; 30 tablet; Refills: 0, Product sp3 Selection Permitted Signatures: Tomy Denton RN RN jb4 Nellie Carpio MD MD sp3
[2023-07-01 06:51] VITALS: BP 132/72; TEMP 97.9; O2SAT 100
== END ==
LOC: ER 06:14
DX: K04.7 Periapical abscess without sinus (principal)
CPT/HCPCS: 99283